=== PATIENT | female | born 1955 | race Caucasian/White ===

== ENCOUNTER 2018-06-03 14:29 | Day surgery (SDC) | payer OTHER ==
[~2018-06-03 14:29] MED LIST: CLINDAMYCIN 900 MG/D5W (PMX) 50 ML IVPB; LACTATED RINGER'S 1,000 ML IV*
[2018-06-03] MEDS ORDERED: FENTAnyl 50 MCG/ML VIAL (17:32)
[2018-06-03] MEDS ORDERED: PROPOFOL 20 ML (17:32)
[2018-06-03] MEDS ORDERED: LIDOCAINE 2% (SDV) 5 ML INJ (17:32)
[2018-06-03] MEDS ORDERED: MIDAZOLAM 1 MG/ML 2 ML INJ (17:38)
[2018-06-03] MEDS ORDERED: ONDANSETRON 4 MG INJ (17:38)
[2018-06-03] MEDS ORDERED: DEXAMETHASONE 4 MG/ML 1 ML INJ (17:38)
[2018-06-03] MEDS: BUPIVACAINE 0.5% (SDV) 30 ML INJ (18:14)
[2018-06-03] MEDS ORDERED: GLYCOPYRROLATE 0.4 MG INJ (18:18)
[2018-06-03] MEDS ORDERED: KETOROLAC 30 MG INJ (18:36)
[2018-06-03] MEDS ORDERED: ONDANSETRON 4 MG INJ IV (19:30)
[2018-06-03] MEDS ORDERED: HYDROmorphONE 1 MG/5 ML IV SYRINGE IV ×3 (19:30)
[2018-06-03] MEDS ORDERED: OXYCODONE/ACETAMINOPHEN (5/325) TAB PO (19:30)
[2018-06-03] MEDS ORDERED: FENTAnyl 50 MCG/ML VIAL IV ×2 (19:30)
[2018-06-03] MEDS: OXYCODONE/ACETAMINOPHEN (5/325) TAB PO (19:57)
== END 2018-06-03 20:34 | disposition home or self-care (01) ==
LOC: SDS 14:29
DX: S62.318A Displaced fracture of base of other metacarpal bone, initial encounter for closed fracture (principal); S62.231D Other displaced fracture of base of first metacarpal bone, right hand, subsequent encounter for fracture with routine healing; X58.XXXD Exposure to other specified factors, subsequent encounter
CPT/HCPCS: 26615; 73140